=== PATIENT | female | born 1970 | race Caucasian/White ===

== ENCOUNTER 2019-09-23 15:38 | Outpatient (CLI) | payer BC ==
[2019-09-23 17:11] LABS: THYROID STIMULATING HORMONE 1.25 uIU/mL (0.34-5.60)
[2019-09-23 17:40] LABS: FOLLICLE STIMULATING HORMONE 7.91 mIU/mL
== END 2019-09-23 15:39 | disposition home or self-care (01) ==
LOC: LAB 15:38
PROVIDERS: ATTEND Nurse Practitioner Obstetrics & Gynecology
DX: Z31.41 Encounter for fertility testing (principal)
CPT/HCPCS: 36415; 83001; 84144; 84443

== ENCOUNTER 2019-10-11 08:51 | Outpatient (CLI) | payer BC | END 2019-10-11 23:59 | disposition home or self-care (01) | LOC: LAB.N 08:51 | PROVIDERS: ATTEND Nurse Practitioner Obstetrics & Gynecology | DX: Z31.41 Encounter for fertility testing (principal) | CPT/HCPCS: 36415; 84144 ==

== ENCOUNTER 2020-02-20 08:30 | Outpatient (CLI) | payer BC | END 2020-02-20 08:31 | disposition home or self-care (01) | LOC: LAB 08:30 | PROVIDERS: ATTEND Nurse Practitioner Obstetrics & Gynecology | DX: Z31.41 Encounter for fertility testing (principal) | CPT/HCPCS: 36415; 86900; 86901 ==